=== PATIENT | male | born 1945 | race Caucasian/White ===

== ENCOUNTER → 2024-06-16 09:11 | Outpatient (REF) | payer OTHER, SELFPAY | LOC: RAD 09:11 | PROVIDERS: ATTENDING PHYSICIAN Specialist; FAMILY PHYSICIAN Family Medicine | DX: N20.0 Calculus of kidney (principal) | CPT/HCPCS: 74018 ==

== ENCOUNTER 2025-02-16 05:51 | Emergency (ER) | payer OTHER, SELFPAY ==
[2025-02-16 05:54] VITALS: BP 152/82
[2025-02-16 06:11] VITALS: BMI 31.6
--- NOTE | 2025-02-16 06:21 | ED.GENMED ---
History of Present Illness
General
Chief Complaint: Flank Pain
Source: patient
Time Seen by Provider: 02/16/25 06:01
History of Present Illness
History of Present Illness:
80-year-old male presents complaining of left flank pain. Pain began yesterday afternoon. Nothing seems to make it better or worse. The pain is a dull pain that stays in the left flank. He has had some nausea associate with the pain. He had
noted some frequency in urination but actually has not urinated recently. He does have a known history of kidney stones on the left. He is followed by Dr. Rosado. He is taking Tylenol which gives him mild relief. He was instructed not to take
NSAIDs due to chronic kidney disease. He denies taking any oral anticoagulants.
Past History
Past History
ED Past Medical History: HTN, Hypercholesterolemia, Other (Kidney sounds), Other (Gallops) and Other (Prostate cancer)
ED Past Surgical History: None
Social History
Tobacco: Non-smoker
Personal:
Living: with family
Family History
Family History: Negative Diabetes, Hypertension, Early CAD, Asthma or Cancer
Phy Exam
Physical Exam
Physical Exam:
General: Awake, Alert, Oriented X3. No acute distress, but appears uncomfortable
Vitals: unremarkable
Head: Atraumatic
Eyes: Pupils equal, EOMI
Throat: Airway intact, no exudates
Neck: Trachea midline
Lungs: Clear and equal b/l
Heart: Regular rate, no murmurs
Abd: Soft, mild tenderness left upper and lower abdomen, No pulsatile mass
Back: Left CVA tenderness to percussion
Neuro: Nonfocal
Skin: Warm, dry, no rash
Extremities: pulses equal b/l, no edema
Course
Orders/Labs/Results
Orders:
Orders
02/16/25 06:20
CT Abd/pel Without Iv Or Oral Urgent
Comment:
Reason For Exam: left flank pain
0.9% Sodium Chloride 500 ml [Nss] 500 ml IV BOLUS
HYDROmorphone [Dilaudid] 0.5 mg IV NOW STA
Ondansetron Injectable [Zofran] 4 mg IV NOW STA
02/16/25 06:28
Basic Metabolic Panel Urgent
Complete Blood Count/With Diff Urgent
02/16/25 07:10
HYDROmorphone [Dilaudid] 0.5 mg IV NOW STA
02/16/25 08:05
Urinalysis Reflex To Culture Urgent
Date Specimen was Collected: 02/16/25
Time Specimen was Collected: 08:01
Urine Microscopic Reflex Cult Urgent
Abnormal Lab Results
02/16/25 02/16/25
06:28 08:05
RBC 4.08 L 10^6/uL
(4.70-6.10)
Hgb 12.0 L g/dL
(13.0-18.0)
Hct 37.1 L %
(39.0-52.0)
MCHC 32.3 L g/dL
(33.0-37.0)
Absolute Neuts (auto) 8.1 H 10^3/uL
(1.4-6.5)
Absolute Lymphs (auto) 0.9 L 10^3/uL
(1.2-3.4)
Neutrophils % 84.6 H %
(42.2-75.2)
Lymphocytes % 9.4 L %
(20.5-51.1)
Chloride 110 H mmol/L
(98-107)
Carbon Dioxide 17 L mmol/L
(22-30)
BUN 59 H mg/dl
(9-20)
Creatinine 2.5 H mg/dL
(0.7-1.3)
Glucose 125 H mg/dl
(70-99)
Ur Occult Blood Reflex 4+ A
(Negative)
Urine RBC 26-30 A /HPF
(0-2)
Urine Bacteria (Reflex) Few A
(Negative)
Urine Glucose 2+ A
(Negative)
Urine Albumin (Reflex) 2+ A
(Neg - Trace)
02/16/25 06:28
02/16/25 06:28
Vital Signs
Initial and Last Documented VS:
Initial Vital Signs
Temp Pulse Resp BP Pulse Ox
97.5 F 85 20 152/82 96
02/16/25 05:54 02/16/25 05:54 02/16/25 05:54 02/16/25 05:54 02/16/25 05:54
Last Documented Vital Signs
Temp Pulse Resp BP Pulse Ox
97.5 F 81 16 147/71 99
02/16/25 05:54 02/16/25 07:09 02/16/25 07:09 02/16/25 07:09 02/16/25 07:03
MDM/Problems Addressed
Differential Diagnosis Includes:
Left-sided kidney stone, left-sided pyelonephritis, herpes zoster, diverticulitis
MDM/Problems Addressed:
Patient presents with left-sided flank pain. He does not have a fever. His white count is normal. Urinalysis shows blood in the urine but no evidence of urinary tract infection. CT confirms the presence of a 3.5 mm stone at the left UVJ. Stone
is likely to pass spontaneously. Patient actually wants to go home if possible. He is feeling better after IV analgesia. Stable for discharge home and follow-up with urology as an outpatient. He understands return if he develops a fever.
*Radiology
Radiology exam reviewed: radiology read reviewed
*Pulse Oximetry
SaO2: 96
Oxygen Mode of Delivery: Room air
Patient hypoxic: no
*Critical Care Note
Total Time (30-74mins, 75-104mins- exclusive of procedures): Not Applicable
ED Attending Note
-
Portions of this chart may have been created with voice recognition software.� Occasional wrong word or��sound alike� substitutions may have occurred due to the inherent limitations of voice recognition software.
Discharge Plan
Departure
Patient Disposition: Home (Routine Discharge)
Date of Disposition: 02/16/25
Time of Disposition: 08:46
Patient with high blood pressure during this ER visit?: No
Condition: Good
Discharge Problem:
Kidney stone on left side
Instructions: Renal Colic (DC), How to Strain Your Urine
Prescriptions:
New
oxycodone 5 mg tablet
5 mg PO Q6H PRN (Reason: Pain) Qty: 12 0RF
ondansetron 4 mg tablet,disintegrating
4 mg PO TID PRN (Reason: nausea and vomiting) Qty: 14 0RF
No Action
glimepiride 1 MG tablet
1 mg PO BID
alprazolam 0.5 MG tablet
0.25 mg PO Q6HPRN PRN (Reason: anxiety)
potassium citrate 10 MEQ tablet extended release
10 meq PO TID
allopurinol 300 MG tablet
300 mg PO DAILY
metformin 750 MG tablet extended release 24 hr
750 mg PO BID
zolpidem [Ambien CR] 12.5 MG tablet,ext release multiphase
12.5 mg PO HS PRN (Reason: Insomnia)
amlodipine-benazepril [Lotrel] 10 MG/40 MG capsule
1 cap PO DAILY
cholecalciferol (vitamin D3) [Vitamin D3] 1,000 UNIT tablet
1,000 unit PO DAILY
allopurinol 100 MG tablet
100 PO QPM
amoxicillin-pot clavulanate [Augmentin] 1 EACH tablet
1 ea PO BID Qty: 7 1RF
Referrals:
Aaron Rosado Jr., MD [Active, Urology]
UNKNOWN - PT NOT,INTERVIEWE [Family Provider]
Activity Restrictions/Additional Instructions:
Return to the emergency room if you develop a fever before you passed the kidney stone. You can take Tylenol every 6 hours for pain. I have prescribed oxycodone as an additional pain medication which you can take every [address] Rodarte's
office to make an appointment.
Interventions
Interventions:
*Risk Screen - Suicide Last Done: 02/16/25 05:54
*General Assessment Last Done: 02/16/25 06:12
*Neglect/Abuse Screening Last Done: 02/16/25 06:12
*ED COVID-19 Vaccine History Last Done: 02/16/25 06:12
*ED Influenza Vaccine History Last Done: 02/16/25 06:12
[facility] Fall Risk Assessment Tool Last Done: 02/16/25 06:11
*Nursing Disposition Last Done: 02/16/25 09:21
W[place]-Qoetxg-Xmkpcvzlmz Assessment Last Done: 02/16/25 06:13
ED-Male Genitourinary Assessment Last Done: 02/16/25 07:04
Discharge Date and Time
Discharge Date/Time: 02/16/25 09:21
Print Language: BELARUSIAN
[2025-02-16] MEDS: NSS 500 IV (06:28)
[2025-02-16] MEDS: DILAUDID 0.5 MG IV ×2 (06:31→07:13)
[2025-02-16] MEDS: ZOFRAN 4 MG IV (06:31)
[2025-02-16 06:51] LABS: Hematocrit 37.1 % (39.0-52.0); Hemoglobin 12.0 g/dL (13.0-18.0); Mean Corp Hgb Conc. 32.3 g/dL (33.0-37.0); Mean Corpuscular Volume 90.9 fL (80.0-94.0); Nucleated Red Blood Cells % 0 % (-); Platelet Count 209 10^3/uL (130-400); Red Cell Dist. Width 14.4 % (11.5-14.5)
[2025-02-16 06:55] LABS: Blood Urea Nitrogen 59 mg/dl (9-20); Calcium 9.6 mg/dl (8.4-10.2); Carbon Dioxide 17 mmol/L (22-30); Chloride 110 mmol/L (98-107); Estimated Creatinine Clearance 28 ml/min; Glucose 125 mg/dl (70-99); Potassium 4.6 mmol/L (3.5-5.1); Sodium 137 mmol/L (135-145); eGFR 25.18
[2025-02-16 07:03] VITALS: BP 147/71
[2025-02-16 07:09] VITALS: BP 147/71
[2025-02-16 08:31] LABS: Urine Character Clear (Clear)
[2025-02-16 08:42] LABS: Urine Urothelial Cell 0-2 /LPF (FEW)
[2025-02-16 08:43] LABS: Urine Red Blood Cell 26-30 /HPF (0-2)
[2025-02-16 08:44] LABS: Urine White Cell 0-2 /HPF (0-5)
== END 2025-02-16 09:21 | disposition home or self-care (01) ==
LOC: EMR 05:51
PROVIDERS: EMERGENCY PHYSICIAN Emergency Medicine
DX: N13.2 Hydronephrosis with renal and ureteral calculous obstruction (principal); I12.9 Hypertensive chronic kidney disease with stage 1 through stage 4 chronic kidney disease, or unspecified chronic kidney disease; N18.9 Chronic kidney disease, unspecified; E78.00 Pure hypercholesterolemia, unspecified; Z87.442 Personal history of urinary calculi
CPT/HCPCS: 99284; 96374; 96375; 96376; 96361; 74176; 80048; 81003; 81015; 85025